=== PATIENT | female | born 1970 | race Caucasian/White ===

== ENCOUNTER 2017-05-02 21:30 | Emergency (ER) | payer MEDICARE, MEDICAID ==
[~2017-05-02] VITALS: Ht 167.6 cm; Wt 59.9 kg
[~2017-05-02 21:30] MED LIST: ALBU6.7H INH; BENZ0.5T PO; BENZ1TAB61 PO; BISA10SU65 PR; DIVA-68 PO; DIVA250T14 PO; HYDR-3245 PO; HYDR25CA PO; HYDR473S51 PO; HYDR50CA PO; HYDR50TA13 PO; IBUP-1223 PO; LAMO25TA13 PO; LEVO100T5 PO; LURA80TA PO; MAGN400O7 PO; MULT1TAB60 PO; NAPR-856 PO; ONDA4TAB10 PO; ONDA4TAB7 PO; OXYB10TA6 PO; PANT40TA5 PO; POLY17PO5 PO; PRAZ1CAP2 PO; PROP10TA PO; RISP2TAB3 PO; RISP3TAB3 PO; RISP4TAB2 PO; SENN-52 PO; SIMV10TA3 PO; SOLI10TA2 PO; TEMA30CA6 PO; TIOT18CA INH; TRAM50TA2 PO; TRAZ50TA18 PO
[2017-05-02] MEDS ORDERED: CLON2TAB PO (22:26)
[2017-05-02] MEDS ORDERED: CLON1TAB PO (22:26)
[2017-05-02] MEDS ORDERED: PROP20TA PO (22:26)
[2017-05-02] MEDS ORDERED: SIMV20TA3 PO (22:26)
[2017-05-02] MEDS ORDERED: DIVA125T2 PO (22:26)
[2017-05-02] MEDS ORDERED: LEVO75TA5 PO (22:26)
[2017-05-02] MEDS ORDERED: ALBUTEROL SULFATE 2.5 MG/3 ML NPPB ONE (22:30)
[2017-05-02] MEDS ORDERED: ALBUTEROL SULFATE 2.5 MG/3 ML ONE (22:35)
[2017-05-02 22:52] VITALS: BP 112/71
== END 2017-05-02 22:55 | disposition home or self-care (01) ==
LOC: ED 22:50
DX: B34.9 Viral infection, unspecified (principal); J44.9 Chronic obstructive pulmonary disease, unspecified; K21.9 Gastro-esophageal reflux disease without esophagitis; E78.5 Hyperlipidemia, unspecified; F43.10 Post-traumatic stress disorder, unspecified; Z86.711 Personal history of pulmonary embolism; Z90.710 Acquired absence of both cervix and uterus; Z88.0 Allergy status to penicillin; Z88.8 Allergy status to other drugs, medicaments and biological substances
CPT/HCPCS: 71046; 93005; 94640; 99284; J7613

== ENCOUNTER 2017-06-27 18:53 | Emergency (ER) | payer MEDICARE, MEDICAID ==
[~2017-06-27] VITALS: Ht 167.6 cm; Wt 66.0 kg
[~2017-06-27 18:53] MED LIST changes: -BENZ0.5T PO; +BENZ0.5T35 PO; +CLON1TAB PO; +CLON2TAB PO; +DIVA125T2 PO; +LEVO75TA5 PO; +PROP20TA PO; +SIMV20TA3 PO
[2017-06-27 19:24] LABS: BASOPHILS # (AUTO) 0.02 x10^3/uL (0-0.1); BASOPHILS % (AUTO) 0 % (0-1); EOSINOPHILS # (AUTO) 0.06 x10^3/uL (0-0.4); EOSINOPHILS % (AUTO) 1 % (1-7); LYMPHOCYTES % (AUTO) 31 % (22-44); MD NO; MEAN CORPUSCULAR HEMOGLOBIN 33.5 pg (27.0-34.8); MEAN CORPUSCULAR HGB CONC 34.1 g/dL (32.4-35.8); MEAN CORPUSCULAR VOLUME 98.1 fL (80-100); MEAN PLATELET VOLUME 7.4 fL (7.4-10.4); MONOCYTES # (AUTO) 0.59 x10^3/uL (0.2-0.8); MONOCYTES % (AUTO) 7 % (2-9); NEUTROPHILS # (AUTO) 4.87 x10^3/uL (1.8-6.8); NEUTROPHILS % (AUTO) 61 % (42-75); PLATELET COUNT 257 x10^3/uL (130-400); RED BLOOD COUNT 3.85 x10^6/uL (3.82-5.3); RED CELL DISTRIBUTION WIDTH 14.6 % (9.6-15.2)
[2017-06-27 19:31] LABS: ALBUMIN 3.8 g/dL (3.4-5.0); ANION GAP 9 mmol/L (5-15); CALCIUM 8.2 mg/dL (8.5-10.1); CHLORIDE 100 mmol/L (98-107)
[2017-06-27 19:32] LABS: CREATININE 0.77 mg/dL (0.55-1.02)
[2017-06-27] MEDS ORDERED: DIPHENHYDRAMINE 25 MG CAPSULE PO ONE (20:00)
[2017-06-27 20:13] LABS: TROPONIN I < 0.015 ng/mL (0.000-0.045)
[2017-06-27] MEDS ORDERED: DIPHENHYDRAMINE 25 MG CAPSULE ONE (21:15)
[2017-06-27 21:18] VITALS: BP 112/80
== END 2017-06-27 22:02 | disposition home or self-care (01) ==
LOC: ED 21:55
DX: R51 Headache (principal); R06.00 Dyspnea, unspecified; R07.89 Other chest pain; E87.1 Hypo-osmolality and hyponatremia; E78.5 Hyperlipidemia, unspecified; K21.9 Gastro-esophageal reflux disease without esophagitis; J45.909 Unspecified asthma, uncomplicated; F17.200 Nicotine dependence, unspecified, uncomplicated; F43.10 Post-traumatic stress disorder, unspecified; F42.9 Obsessive-compulsive disorder, unspecified; K22.70 Barrett's esophagus without dysplasia; Z90.710 Acquired absence of both cervix and uterus
CPT/HCPCS: 36415; 70450; 71045; 80048; 82040; 84484; 85025; 93005; 99285; Q0163

== ENCOUNTER 2018-02-26 21:48 | Inpatient (IN) | payer MEDICARE, MEDICAID ==
[~2018-02-26] VITALS: Ht 167.6 cm; Wt 91.2 kg
[~2018-02-26 21:48] MED LIST changes: +DIVA-61 PO; -DIVA-68 PO; -PROP10TA PO; +PROP10TA16 PO; -TRAZ50TA18 PO; +TRAZ50TA66 PO
[2018-02-26] MEDS ORDERED: LORazepam 2 MG/ML, 1ML ONE (21:50)
[2018-02-26 22:21] LABS: MEAN CORPUSCULAR HEMOGLOBIN 32.5 pg (27.0-34.8); MEAN CORPUSCULAR HGB CONC 34.4 g/dL (32.4-35.8); MEAN CORPUSCULAR VOLUME 94.4 fL (80-100); PLATELET COUNT 225 x10^3/uL (130-400); RED BLOOD COUNT 4.29 x10^6/uL (3.82-5.3); RED CELL DISTRIBUTION WIDTH 16.9 % (9.6-15.2)
[2018-02-26 22:24] LABS: MD YES
[2018-02-26 22:29] LABS: INTERNATIONAL NORMALIZED RATIO 0.88 (0.93-1.1); PROTHROMBIN TIME 9.4 Seconds (9.6-11.5)
[2018-02-26] MEDS ORDERED: LEVETIRACETAM 1,000 MG in SODIUM CHLORIDE 0.9% 100 ML IV ONE (22:30)
[2018-02-26] MEDS: PLEASE ENTER ALLERGIES MC SCH ×2 (22:30→23:33)
[2018-02-26] MEDS ORDERED: PROPOFOL 100 ML IV PRN (22:30)
[2018-02-26 22:32] LABS: BASOS#(MANUAL) 0.07 x10^3/uL (0-0.1); BASOS% (MANUAL) 1 % (0-1); EOS#(MANUAL) 0.26 x10^3/uL (0.0-0.4); EOS% (MANUAL) 4 % (1-7); LYMPH#(MANUAL) 2.54 x10^3/uL (1-3.4); LYMPHS% (MANUAL) 39 % (22-44); MONOS% (MANUAL) 3 % (2-9); REACTIVE LYMPHS % (MANUAL) 3 % (0-0); SEG#(MANUAL) 3.25 x10^3/uL (1.8-6.8); SEGS% (MANUAL) 50 % (42-75)
[2018-02-26 22:33] LABS: <PLATELET ESTIMATE> ADEQUATE; <PLT MORPHOLOGY> NORMAL PLT MORPH; ANISOCYTOSIS 1+
[2018-02-26 22:41] LABS: MICROSCOPIC INDICATED
[2018-02-26] MEDS ORDERED: OMNIPAQUE 350 MG/ML, 100ML BOTTLE ONE (22:47)
[2018-02-26] MEDS ORDERED: DIVALPROEX 250 MG TABLET.DR PO ONE (23:00)
--- NOTE | 2018-02-26 23:07 | NUR ---
BIB [facility] FROM HOME D/T NEURO SYMPTOMS THEN PT HAVING SZ [facility] GIVEN 2 VERSED DURING THE TIME 2145 PT WAS IN T3 WITH HAVING SZ ERP AT BED SIDE DECIDED INTUBATION 2199 INTUBATED WITH #7 24CM AT LIP 100 ROUCRONIUM WITH 2 VERSED GIVEN DURING INTUBATION 2219 CT HEAD BACK TO T3 PT IS NOT RESPONDING AT THIS TIME VSS STABLE WITH VENT AT BED SIDE
[2018-02-26 23:20] LABS: FREE T4 (FREE THYROXINE) 0.95 ng/dL (0.76-1.46); THYROID STIMULATING HORMONE 4.41 mIU/L (0.358-3.740)
[2018-02-26] MEDS ORDERED: VALPROATE SODIUM 750 MG in SODIUM CHLORIDE 0.9% 100 ML IV ONE (23:30)
[2018-02-26] MEDS ORDERED: VALPROATE SODIUM 250 MG in DEXTROSE 5% 100 ML IV SCH (23:30)
[2018-02-26] MEDS ORDERED: ESZO3TAB28 PO (23:50)
[2018-02-26] MEDS ORDERED: CELE200C PO (23:50)
[2018-02-26] MEDS ORDERED: CLON0.5T20 PO (23:50)
[2018-02-26] MEDS ORDERED: FLUT1BLS INH (23:50)
[2018-02-26] MEDS ORDERED: PROC25SU2 PR (23:50)
[2018-02-26] MEDS ORDERED: LORA2TAB PO (23:50)
[2018-02-26] MEDS ORDERED: FLUT15OI2 INH (23:50)
[2018-02-26] MEDS ORDERED: ONDA4TAB7 PO (23:50)
[2018-02-26] MEDS ORDERED: RISP1TAB3 PO (23:50)
[2018-02-26] MEDS ORDERED: LINA145C PO (23:50)
[2018-02-26] MEDS ORDERED: DICY10CA3 PO (23:50)
[2018-02-26] MEDS ORDERED: BENZ-17 PO (23:50)
[2018-02-26] MEDS ORDERED: PANT40TA5 PO (23:50)
[2018-02-26] MEDS ORDERED: DOCU100C33 PO (23:50)
[2018-02-26] MEDS ORDERED: PRAZ2CAP2 PO (23:50)
[2018-02-26] MEDS ORDERED: GABA300C10 PO (23:50)
--- NOTE | 2018-02-26 23:51 | NUR ---
OFF PROPOFOL PER ERP PT IS NOT RESPONDING AT ANY STIMULUS BLOOD GAS WAS NOTIFIED TO RT AND VENT SETTING WAS CHANGED
--- NOTE | 2018-02-26 23:52 | NUR ---
( MOUSTAPHA ) PHONE NUMBER [phone]
[2018-02-27] MEDS ORDERED: MIDAZOLAM 1 MG/ML, 5ML ONE
[2018-02-27] MEDS ORDERED: ROCURONIUM 10 MG/ML,10ML ONE
[2018-02-27] MEDS ORDERED: PROPOFOL 10 MG/ML, 100ML IV ONE
[2018-02-27] MEDS ORDERED: MIDAZOLAM 1 MG/ML, 2ML IVPush ONE (00:30)
[2018-02-27] MEDS ORDERED: ROCURONIUM 10 MG/ML,10ML IVPush ONE ×2 (00:30)
--- NOTE | 2018-02-27 00:34 | NUR ---
PT IS BACK ON SEDATION FOR ERP VSS AT BED SIDE
[2018-02-27] MEDS ORDERED: PROPOFOL 100 ML IV PRN (00:35)
[2018-02-27] MEDS: CEFTRIAXONE PMX 2GM/50ML 50 ML IV SCH (01:00)
[2018-02-27] MEDS ORDERED: SENNOSIDES 8.8 MG/5 ML ORAL SOL NG PRN (01:00)
[2018-02-27] MEDS ORDERED: SENNA/DOCUSATE TABLET NG PRN (01:00)
[2018-02-27] MEDS ORDERED: PHARMACY MAY ADJ FOR RENAL FX MC SCH (01:00)
[2018-02-27] MEDS ORDERED: SODIUM CHLORIDE 0.9% 1,000 ML IV SCH (01:00)
[2018-02-27] MEDS ORDERED: LACTULOSE 20 GM/30 ML UDC NG PRN (01:00)
[2018-02-27] MEDS ORDERED: LORazepam 2 MG/ML, 1ML IV PRN (01:00)
[2018-02-27] MEDS ORDERED: LIDOCAINE-MPF 1%, 2ML ENDO PRN (01:00)
[2018-02-27] MEDS ORDERED: BISACODYL 10 MG SUPP PR PRN (01:00)
[2018-02-27] MEDS ORDERED: METRONIDAZOLE PMX 500MG/100ML 100 ML ONE ×3 (01:15→13:48)
[2018-02-27] MEDS ORDERED: CEFTRIAXONE PMX 1GM/50ML 50 ML ONE (01:15)
[2018-02-27] MEDS: METRONIDAZOLE PMX 500MG/100ML 100 ML IV SCH ×4 (01:18→20:11)
--- NOTE | 2018-02-27 01:20 | NUR ---
NO BLOOD CULTURES WERE NEEDED PER [facility] ANITA GIVEN IV ABX PER MD ORDER
--- NOTE | 2018-02-27 01:29 | NUR ---
MRi: waiting for screening form before calling tech in, fax [phone] pls
[2018-02-27 01:48] LABS: TROPONIN I < 0.015 ng/mL (0.000-0.045)
[2018-02-27] MEDS ORDERED: FAMOTIDINE 20 MG/2 ML ONE ×2 (02:03→13:49)
[2018-02-27] MEDS ORDERED: HEPARIN 5,000 UNITS/ML, 1ML ONE ×2 (02:03→09:50)
[2018-02-27] MEDS: ALBUTEROL/IPRATROPIUM 2.5MG/0.5MG, 3 ML INLINE SCH ×2 (02:41→06:00)
--- NOTE | 2018-02-27 02:44 | NUR ---
pt is on hospital bed with waffle mattress on vss pt is easily awake and back to sleep no seizure is seen now
[2018-02-27] MEDS: FAMOTIDINE 20 MG/2 ML IV SCH ×2 (02:48→14:00)
[2018-02-27] MEDS: HEPARIN 5,000 UNITS/ML, 1ML SQ SCH ×3 (02:49→18:04)
[2018-02-27] MEDS ORDERED: ALBUTEROL/IPRATROPIUM 2.5MG/0.5MG, 3 ML ONE (02:52)
[2018-02-27] MEDS ORDERED: PROPOFOL 100 ML IV ONE (04:00)
--- NOTE | 2018-02-27 04:47 | NUR ---
no SZ noted pt is calm with propofol
[2018-02-27 06:12] LABS: AMPHETAMINE SCREEN, URINE Negative (Negative); BARBITURATE SCREEN, URINE Negative (Negative); BENZODIAZEPINE SCREEN, URINE Positive (Negative); CANNABINOID SCREEN, URINE Negative (Negative); COCAINE SCREEN, URINE Negative (Negative); METHADONE SCREEN, URINE Negative (Negative); OPIATE SCREEN, URINE Negative (Negative)
[2018-02-27 06:39] LABS: BASOPHILS # (AUTO) 0.02 x10^3/uL (0-0.1); BASOPHILS % (AUTO) 0 % (0-1); EOSINOPHILS # (AUTO) 0.11 x10^3/uL (0-0.4); EOSINOPHILS % (AUTO) 2 % (1-7); LYMPHOCYTES # (AUTO) 1.98 x10^3/uL (1-3.4); LYMPHOCYTES % (AUTO) 28 % (22-44); MD NO; MEAN CORPUSCULAR HGB CONC 34.6 g/dL (32.4-35.8); MEAN CORPUSCULAR VOLUME 95.3 fL (80-100); MONOCYTES # (AUTO) 0.44 x10^3/uL (0.2-0.8); MONOCYTES % (AUTO) 6 % (2-9); NEUTROPHILS # (AUTO) 4.52 x10^3/uL (1.8-6.8); NEUTROPHILS % (AUTO) 64 % (42-75); PLATELET COUNT 212 x10^3/uL (130-400); RED BLOOD COUNT 3.99 x10^6/uL (3.82-5.3); RED CELL DISTRIBUTION WIDTH 17.5 % (9.6-15.2)
[2018-02-27 06:53] LABS: TROPONIN I < 0.015 ng/mL (0.000-0.045)
[2018-02-27 07:04] LABS: ANION GAP 6 mmol/L (5-15); CALCIUM 8.3 mg/dL (8.5-10.1); CHLORIDE 112 mmol/L (98-107); CREATININE 0.71 mg/dL (0.55-1.02)
--- NOTE | 2018-02-27 07:32 | NUR ---
0645 EXTUBATED AFTER SPOKE TO DR TAVERAS WITH RT FRANCIS OFF PROPOFOL PT WAS EXTUBATED APPLIED 4 LITER OF OXYGEN NC PT TALKING DENIED SOB 0650 GIVEN REPORT TO NILTON
--- NOTE | 2018-02-27 08:11 | NUR ---
TO MRI VIA [facility]
[2018-02-27] MEDS ORDERED: FLUTICASONE/VILANTEROL 200-25MCG/INH INH SCH (09:00)
[2018-02-27] MEDS ORDERED: DIVALPROEX 125 MG TABLET.DR PO SCH (09:00)
[2018-02-27] MEDS ORDERED: PANTOPRAZOLE 20MG TABLET ONE (09:49)
[2018-02-27] MEDS ORDERED: DOCUSATE 100 MG CAPSULE ONE (09:50)
[2018-02-27] MEDS ORDERED: GABAPENTIN 300 MG CAPSULE ONE (09:50)
[2018-02-27] MEDS ORDERED: DICYCLOMINE 10 MG CAPSULE ONE (09:50)
--- NOTE | 2018-02-27 10:10 | NUR ---
IS MOUSTAPHA [phone]
--- NOTE | 2018-02-27 10:11 | NUR ---
JULIUS MARTINEZ RN
[2018-02-27] MEDS: GABAPENTIN 300 MG CAPSULE PO SCH ×3 (10:15→20:12)
[2018-02-27] MEDS: DICYCLOMINE 10 MG CAPSULE PO SCH ×4 (10:16→20:14)
[2018-02-27] MEDS: PANTOPROZOLE 40MG TABLET PO SCH (10:16)
[2018-02-27] MEDS: DOCUSATE 100 MG CAPSULE PO SCH ×2 (10:17→20:14)
[2018-02-27] MEDS: LEVOTHYROXINE 88 MCG TABLET PO SCH (10:17)
[2018-02-27] MEDS: DIVALPROEX 125 MG TABLET.DR PO SCH ×2 (10:19→20:13)
[2018-02-27] MEDS: LAMOTRIGINE 100 MG TABLET PO SCH (10:27)
[2018-02-27] MEDS: FLUTICASONE NASAL SPRAY 16GM NAS SCH (10:28)
[2018-02-27] MEDS: LINZESS 145 MCG PO SCH (10:28)
[2018-02-27] MEDS ORDERED: BUDESONIDE 0.5 MG/2 ML INHA NPPB SCH (10:30)
[2018-02-27] MEDS ORDERED: ALBUTEROL SULFATE 2.5 MG/3 ML NPPB SCH (10:30)
--- NOTE | 2018-02-27 11:51 | NUR ---
VERBAL ORDER RECIEVED FROM DR. DOZIER AND READ BACK FOR A REGULAR DIET. ORDERING PT A REGULAR DIET MEAL TRAY.
--- NOTE | 2018-02-27 13:05 | NUR ---
LUNCH RN: PT RESTING IN ROOM, EEG COMPLETED AT THIS TIME.
--- NOTE | 2018-02-27 13:36 | NUR ---
Pt sleeping on hospital bed at this time. NADN. PIV fluids infusing per EMAR. Provided pt meal tray for lunch. Pt sleeping at this time.
[2018-02-27] MEDS ORDERED: ALBUTEROL SULFATE 2.5 MG/3 ML ONE (14:41)
[2018-02-27] MEDS ORDERED: BUDESONIDE 0.5 MG/2 ML INHA ONE (14:41)
[2018-02-27] MEDS: ALBUTEROL SULFATE 2.5 MG/3 ML NPPB SCH ×2 (14:43→20:35)
[2018-02-27 15:56] VITALS: BP 101/66
[2018-02-27 18:58] VITALS: BP 99/67
[2018-02-27] MEDS: BUDESONIDE 0.5 MG/2 ML INHA NPPB SCH (20:33)
[2018-02-27] MEDS ORDERED: RISPERIDONE 1 MG TABLET PO SCH (21:00)
[2018-02-27] MEDS ORDERED: LUNESTA 3 MG PO SCH (21:00)
[2018-02-27] MEDS ORDERED: PRAZOSIN 2 MG CAPSULE PO SCH (21:00)
[2018-02-27] MEDS ORDERED: SIMVASTATIN 20 MG TABLET PO SCH (21:00)
[2018-02-28 00:55] VITALS: BP 98/56
[2018-02-28] MEDS: CEFTRIAXONE PMX 2GM/50ML 50 ML IV SCH (01:25)
[2018-02-28] MEDS: HEPARIN 5,000 UNITS/ML, 1ML SQ SCH ×2 (01:26→08:18)
[2018-02-28] MEDS: FAMOTIDINE 20 MG/2 ML IV SCH (01:26)
[2018-02-28] MEDS: METRONIDAZOLE PMX 500MG/100ML 100 ML IV SCH ×2 (02:30→08:16)
[2018-02-28] MEDS: ALBUTEROL SULFATE 2.5 MG/3 ML NPPB SCH ×2 (03:00→08:20)
[2018-02-28 05:43] LABS: BASOPHILS # (AUTO) 0.04 x10^3/uL (0-0.1); BASOPHILS % (AUTO) 1 % (0-1); EOSINOPHILS # (AUTO) 0.08 x10^3/uL (0-0.4); EOSINOPHILS % (AUTO) 2 % (1-7); LYMPHOCYTES # (AUTO) 2.09 x10^3/uL (1-3.4); LYMPHOCYTES % (AUTO) 39 % (22-44); MD NO; MEAN CORPUSCULAR HEMOGLOBIN 32.7 pg (27.0-34.8); MEAN CORPUSCULAR HGB CONC 34.1 g/dL (32.4-35.8); MEAN CORPUSCULAR VOLUME 95.7 fL (80-100); MONOCYTES # (AUTO) 0.49 x10^3/uL (0.2-0.8); MONOCYTES % (AUTO) 9 % (2-9); NEUTROPHILS # (AUTO) 2.71 x10^3/uL (1.8-6.8); NEUTROPHILS % (AUTO) 50 % (42-75); PLATELET COUNT 193 x10^3/uL (130-400); RED BLOOD COUNT 3.65 x10^6/uL (3.82-5.3); RED CELL DISTRIBUTION WIDTH 17.2 % (9.6-15.2)
[2018-02-28 05:51] LABS: CHLORIDE 114 mmol/L (98-107)
[2018-02-28 05:56] LABS: ANION GAP 4 mmol/L (5-15); CALCIUM 8.8 mg/dL (8.5-10.1)
[2018-02-28] MEDS: LEVOTHYROXINE 88 MCG TABLET PO SCH (06:08)
[2018-02-28] MEDS: DICYCLOMINE 10 MG CAPSULE PO SCH ×2 (06:08→11:14)
[2018-02-28 08:08] VITALS: BP 114/77
[2018-02-28] MEDS: LINZESS 145 MCG PO SCH (08:16)
[2018-02-28] MEDS: LAMOTRIGINE 100 MG TABLET PO SCH (08:17)
[2018-02-28] MEDS: DIVALPROEX 125 MG TABLET.DR PO SCH (08:17)
[2018-02-28] MEDS: FLUTICASONE NASAL SPRAY 16GM NAS SCH (08:17)
[2018-02-28] MEDS: DOCUSATE 100 MG CAPSULE PO SCH (08:17)
[2018-02-28] MEDS: PANTOPROZOLE 40MG TABLET PO SCH (08:18)
[2018-02-28] MEDS: GABAPENTIN 300 MG CAPSULE PO SCH (08:18)
[2018-02-28] MEDS: BUDESONIDE 0.5 MG/2 ML INHA NPPB SCH (09:00)
[2018-02-28] MEDS ORDERED: DIVA125T2 PO (11:55)
[2018-02-28 12:57] VITALS: BP 125/77
== END 2018-02-28 13:20 | disposition home or self-care (01) | DRG 208 ==
LOC: MERGE 21:48 → EDSEX 21:48 → EDBD 21:48 → ED 23:48 → EDIP 23:49 → 4WST 02-27 15:37 → DCLOUNGE 02-28 13:07
PROVIDERS: ADMIT Internal Medicine; ATTEND Internal Medicine
PROC: 5A1935Z Respiratory Ventilation, Less than 24 Consecutive Hours (ICD-10-PCS; principal; 2018-02-26)
PROC: 0BH17EZ Insertion of Endotracheal Airway into Trachea, Via Natural or Artificial Opening (ICD-10-PCS; 2018-02-26)
PROC: 0T9B70Z Drainage of Bladder with Drainage Device, Via Natural or Artificial Opening (ICD-10-PCS; 2018-02-26)
DX: J96.00 Acute respiratory failure, unspecified whether with hypoxia or hypercapnia (principal); J98.11 Atelectasis; R47.01 Aphasia; G40.901 Epilepsy, unspecified, not intractable, with status epilepticus; E06.3 Autoimmune thyroiditis; E78.5 Hyperlipidemia, unspecified; F31.9 Bipolar disorder, unspecified; F41.1 Generalized anxiety disorder; F42.9 Obsessive-compulsive disorder, unspecified; E66.9 Obesity, unspecified; F43.10 Post-traumatic stress disorder, unspecified; G43.909 Migraine, unspecified, not intractable, without status migrainosus; G89.4 Chronic pain syndrome; I11.9 Hypertensive heart disease without heart failure; J44.9 Chronic obstructive pulmonary disease, unspecified; K21.9 Gastro-esophageal reflux disease without esophagitis; K22.70 Barrett's esophagus without dysplasia; Z80.0 Family history of malignant neoplasm of digestive organs; Z86.711 Personal history of pulmonary embolism; Z90.710 Acquired absence of both cervix and uterus; Z79.899 Other long term (current) drug therapy; Z88.0 Allergy status to penicillin; Z88.8 Allergy status to other drugs, medicaments and biological substances; Z91.040 Latex allergy status; Z98.49 Cataract extraction status, unspecified eye; Z68.32 Body mass index [BMI] 32.0-32.9, adult
CPT/HCPCS: 31500; 36415; 36600; 70450; 70496; 70498; 70545; 70553; 71045; 80047; 80048; 80164; 80307; 81001; 82140; 82803; 82805; 82962; 83735; 84439; 84443; 84478; 84484; 85025; 85610; 85730; 87070; 87205; 93005; 94002; 94003; 94640; 95819; 96365; 96375; 99291; G0378; J0696; J1644; J2250; J2704; J7613; J7620; J7626; Q9967; J3490; J7030

== ENCOUNTER → 2018-05-14 | Outpatient (CLI) | payer MEDICARE, MEDICAID ==
[~2018-05-14] MED LIST changes: +BENZ-17 PO; +CELE200C PO; +CLON0.5T20 PO; +DICY10CA3 PO; +DOCU100C33 PO; +ESZO3TAB28 PO; +FLUT15OI2 INH; +FLUT1BLS INH; +GABA300C10 PO; +LINA145C PO; +LORA2TAB PO; +PRAZ2CAP2 PO; +PROC25SU2 PR; +RISP1TAB3 PO
[2018-05-14 15:29] LABS: HCT (SEDRATE) 41.9 % (34.6-47.8)
[2018-05-14 15:30] LABS: BASOPHILS # (AUTO) 0.05 x10^3/uL (0-0.1); BASOPHILS % (AUTO) 1 % (0-1); EOSINOPHILS # (AUTO) 0.28 x10^3/uL (0-0.4); EOSINOPHILS % (AUTO) 4 % (1-7); LYMPHOCYTES % (AUTO) 41 % (22-44); MD NO; MEAN CORPUSCULAR HEMOGLOBIN 33.7 pg (27.0-34.8); MEAN CORPUSCULAR HGB CONC 34.2 g/dL (32.4-35.8); MEAN CORPUSCULAR VOLUME 98.6 fL (80-100); MEAN PLATELET VOLUME 7.9 fL (7.4-10.4); MONOCYTES # (AUTO) 0.44 x10^3/uL (0.2-0.8); MONOCYTES % (AUTO) 6 % (2-9); NEUTROPHILS # (AUTO) 3.23 x10^3/uL (1.8-6.8); NEUTROPHILS % (AUTO) 48 % (42-75); PLATELET COUNT 259 x10^3/uL (130-400); RED BLOOD COUNT 4.28 x10^6/uL (3.82-5.3); RED CELL DISTRIBUTION WIDTH 14.4 % (9.6-15.2)
[2018-05-14 15:38] LABS: C-REACTIVE PROTEIN, QUANT 0.03 mg/dL (0.02-0.49)
== END | disposition home or self-care (01) ==
LOC: CFH 12:12
PROVIDERS: ATTEND Orthopaedic Surgery
DX: M05.841 Other rheumatoid arthritis with rheumatoid factor of right hand (principal)
CPT/HCPCS: 36415; 81374; 83516; 84550; 85025; 85651; 86038; 86140; 86160; 86200; 86225; 86235; 86255; 86256; 86376; 86430; 86431

== ENCOUNTER 2018-08-31 10:22 | Outpatient (CLI) | payer MEDICARE, MEDICAID | END 2018-08-31 23:59 | disposition home or self-care (01) | LOC: CFH 10:22 | PROVIDERS: ATTEND Nurse Practitioner | DX: Z12.2 Encounter for screening for malignant neoplasm of respiratory organs (principal); K44.9 Diaphragmatic hernia without obstruction or gangrene; F17.210 Nicotine dependence, cigarettes, uncomplicated | CPT/HCPCS: G0297 ==

== ENCOUNTER 2019-03-02 14:39 | Emergency (ER) | payer MEDICAID, MEDICARE ==
[~2019-03-02] VITALS: Ht 167.6 cm; Wt 69.5 kg
[~2019-03-02 14:39] MED LIST changes: -ALBU6.7H INH; +ALBU6.7H8 INH
[2019-03-02] MEDS ORDERED: LINA290C PO (15:02)
[2019-03-02] MEDS ORDERED: SUPER B COMPLEX PO (15:09)
[2019-03-02] MEDS ORDERED: DIAZ10TA4 PO (15:09)
[2019-03-02] MEDS ORDERED: FOLI-17 PO (15:09)
[2019-03-02] MEDS ORDERED: VITAMIN B6 PO (15:09)
[2019-03-02] MEDS ORDERED: CYAN50003 PO (15:09)
[2019-03-02] MEDS ORDERED: ERGO500017 PO (15:09)
[2019-03-02] MEDS ORDERED: TRAZ-137 PO (15:09)
[2019-03-02] MEDS ORDERED: ONDANSETRON 2MG/ML, 2ML ONE (15:27)
[2019-03-02] MEDS ORDERED: SODIUM CHLORIDE 0.9% 1,000ML IVBOLUS ONE (15:30)
[2019-03-02] MEDS ORDERED: ONDANSETRON 2MG/ML, 2ML IVPush ONE (15:30)
[2019-03-02 15:43] LABS: BASOPHILS # (AUTO) 0.13 x10^3/uL (0-0.1); BASOPHILS % (AUTO) 2 % (0-1); EOSINOPHILS # (AUTO) 0.18 x10^3/uL (0-0.4); EOSINOPHILS % (AUTO) 3 % (1-7); LYMPHOCYTES % (AUTO) 39 % (22-44); MD NO; MEAN CORPUSCULAR HEMOGLOBIN 31.1 pg (27.0-34.8); MEAN CORPUSCULAR HGB CONC 33.2 g/dL (32.4-35.8); MEAN CORPUSCULAR VOLUME 93.6 fL (80-100); MEAN PLATELET VOLUME 7.8 fL (7.4-10.4); MONOCYTES # (AUTO) 0.46 x10^3/uL (0.2-0.8); MONOCYTES % (AUTO) 8 % (2-9); NEUTROPHILS % (AUTO) 48 % (42-75); PLATELET COUNT 241 x10^3/uL (130-400); RED BLOOD COUNT 4.35 x10^6/uL (3.82-5.3); RED CELL DISTRIBUTION WIDTH 14.6 % (9.6-15.2)
[2019-03-02 15:50] LABS: ALBUMIN 3.8 g/dL (3.4-5.0); ANION GAP 9 mmol/L (5-15); CHLORIDE 113 mmol/L (98-107)
[2019-03-02 15:54] LABS: ALANINE AMINOTRANSFERASE 13 U/L (12-78); ALKALINE PHOSPHATASE 49 U/L (45-117); BILIRUBIN,TOTAL 0.3 mg/dL (0.2-1.0); CREATININE 0.92 mg/dL (0.55-1.02); TOTAL PROTEIN 6.6 g/dL (6.4-8.2)
[2019-03-02] MEDS ORDERED: OMNIPAQUE 350 MG/ML, 100ML BOTTLE ONE (17:03)
[2019-03-02 17:35] VITALS: BP 106/71
== END 2019-03-02 18:48 | disposition home or self-care (01) ==
LOC: ED 15:30
DX: R10.84 Generalized abdominal pain (principal); J44.0 Chronic obstructive pulmonary disease with (acute) lower respiratory infection; K21.9 Gastro-esophageal reflux disease without esophagitis; E78.5 Hyperlipidemia, unspecified; Z90.710 Acquired absence of both cervix and uterus
CPT/HCPCS: 36415; 74021; 74177; 80053; 83690; 85025; 96374; 99284; J2405; J7030; Q9967

== ENCOUNTER 2019-04-01 11:19 | Emergency (ER) | payer MEDICARE ==
[~2019-04-01] VITALS: Ht 167.6 cm; Wt 75.0 kg
[~2019-04-01 11:19] MED LIST changes: +CYAN50003 PO; +DIAZ10TA4 PO; +ERGO500017 PO; +FOLI-17 PO; -HYDR50TA13 PO; +HYDR50TA99 PO; +LINA290C PO; +SIMV10TA18 PO; -SIMV10TA3 PO; +SIMV20TA19 PO; -SIMV20TA3 PO; +SUPER B COMPLEX PO; +TRAZ-175 PO; +VITAMIN B6 PO
[2019-04-01 11:57] LABS: BASOPHILS # (AUTO) 0.02 x10^3/uL (0-0.1); BASOPHILS % (AUTO) 0 % (0-1); EOSINOPHILS # (AUTO) 0.09 x10^3/uL (0-0.4); EOSINOPHILS % (AUTO) 2 % (1-7); LYMPHOCYTES # (AUTO) 1.54 x10^3/uL (1-3.4); LYMPHOCYTES % (AUTO) 30 % (22-44); MD NO; MEAN CORPUSCULAR HEMOGLOBIN 31.6 pg (27.0-34.8); MEAN CORPUSCULAR HGB CONC 33.7 g/dL (32.4-35.8); MEAN CORPUSCULAR VOLUME 93.9 fL (80-100); MEAN PLATELET VOLUME 8.1 fL (7.4-10.4); MONOCYTES # (AUTO) 0.38 x10^3/uL (0.2-0.8); MONOCYTES % (AUTO) 7 % (2-9); NEUTROPHILS # (AUTO) 3.11 x10^3/uL (1.8-6.8); NEUTROPHILS % (AUTO) 61 % (42-75); PLATELET COUNT 186 x10^3/uL (130-400); RED CELL DISTRIBUTION WIDTH 14.9 % (9.6-15.2)
[2019-04-01 12:11] LABS: ALBUMIN 3.7 g/dL (3.4-5.0); ANION GAP 6 mmol/L (5-15); CALCIUM 8.5 mg/dL (8.5-10.1); CHLORIDE 113 mmol/L (98-107)
--- NOTE | 2019-04-01 12:30 | NUR ---
LEAD INJECTION MOLD TECHNICIAN: PT TO ROOM VIA WHEELCHAIR AT THIS TIME. GUSTAVO
[2019-04-01 13:17] VITALS: BP 118/78
--- NOTE | 2019-04-01 13:17 | NUR ---
UA COLLECTED AND SENT TO LAB.
[2019-04-01 13:27] LABS: MICROSCOPIC AUTO
[2019-04-01 13:29] LABS: CULTURE INDICATED? YES
--- NOTE | 2019-04-01 13:47 | NUR ---
ALL RESULTS BACK AT THIS TIME, CHART UP FOR RECHECK
== END 2019-04-01 14:26 | disposition home or self-care (01) ==
LOC: ED 14:00
DX: N30.00 Acute cystitis without hematuria (principal); R10.84 Generalized abdominal pain; M79.672 Pain in left foot; H00.022 Hordeolum internum right lower eyelid; J44.9 Chronic obstructive pulmonary disease, unspecified; K21.9 Gastro-esophageal reflux disease without esophagitis; E78.5 Hyperlipidemia, unspecified; F17.200 Nicotine dependence, unspecified, uncomplicated
CPT/HCPCS: 36415; 74022; 80048; 81001; 82040; 85025; 87077; 87086; 87186; 99285

== ENCOUNTER 2019-06-13 16:02 | Observation (INO) | payer MEDICARE, MEDICAID ==
[~2019-06-13] VITALS: Ht 167.6 cm; Wt 79.8 kg
[2019-06-13 17:13] LABS: BASOPHILS # (AUTO) 0.04 x10^3/uL (0-0.1); BASOPHILS % (AUTO) 1 % (0-1); EOSINOPHILS # (AUTO) 0.15 x10^3/uL (0-0.4); EOSINOPHILS % (AUTO) 3 % (1-7); LYMPHOCYTES # (AUTO) 2.24 x10^3/uL (1-3.4); LYMPHOCYTES % (AUTO) 44 % (22-44); MD NO; MEAN CORPUSCULAR HEMOGLOBIN 32.5 pg (27.0-34.8); MEAN CORPUSCULAR HGB CONC 34.3 g/dL (32.4-35.8); MEAN CORPUSCULAR VOLUME 94.8 fL (80-100); MEAN PLATELET VOLUME 7.8 fL (7.4-10.4); MONOCYTES # (AUTO) 0.36 x10^3/uL (0.2-0.8); MONOCYTES % (AUTO) 7 % (2-9); NEUTROPHILS # (AUTO) 2.34 x10^3/uL (1.8-6.8); NEUTROPHILS % (AUTO) 46 % (42-75); PLATELET COUNT 232 x10^3/uL (130-400); RED BLOOD COUNT 4.33 x10^6/uL (3.82-5.3); RED CELL DISTRIBUTION WIDTH 14.8 % (9.6-15.2)
[2019-06-13 17:27] LABS: ALANINE AMINOTRANSFERASE 15 U/L (12-78); ALBUMIN 3.3 g/dL (3.4-5.0); ANION GAP 7 mmol/L (5-15); CALCIUM 8.5 mg/dL (8.5-10.1); CHLORIDE 106 mmol/L (98-107); CREATININE 0.84 mg/dL (0.55-1.02)
[2019-06-13 17:29] LABS: ALKALINE PHOSPHATASE 44 U/L (45-117); BILIRUBIN,TOTAL 0.3 mg/dL (0.2-1.0); TOTAL PROTEIN 6.3 g/dL (6.4-8.2)
[2019-06-13] MEDS ORDERED: MORPHINE SULFATE 4 MG/ML, 1ML IVPush PRN (18:00)
--- NOTE | 2019-06-13 18:09 | NUR ---
ASSUMED CARE OF PATIENT. PATIENT REPORTS SHE HAS NOT HAD A BOWEL MOVEMENT SINCE MONDAY. ABD IS DISTENDED. VS STABLE. CALL LIGHT IN PLACE. WILL CONTINUE TO MONITOR.
[2019-06-13] MEDS ORDERED: MORPHINE SULFATE 4 MG/ML, 1ML ONE (18:15)
--- NOTE | 2019-06-13 19:03 | NUR ---
PT RESTING IN ROOM. NO ACUTE DISTRESS NOTED. VS STABLE. WILL CONTINUE TO MONITOR.
[2019-06-13 19:34] LABS: MICROSCOPIC NOT IND
[2019-06-13 19:39] LABS: CULTURE INDICATED? NO
--- NOTE | 2019-06-13 19:46 | NUR ---
PT RESTING IN ROOM. NO ACUTE DISTRESS NOTED. CALL LIGHT IN PLACE. WILL CONTINUE TO MONITOR.
--- NOTE | 2019-06-13 20:36 | NUR ---
PT WATCHING TV IN ROOM. NO ACUTE DISTRESS NOTED. CALL LIGHT IN PLACE. WILL CONTINUE TO MONITOR.
[2019-06-13] MEDS ORDERED: OMNIPAQUE 350 MG/ML, 100ML BOTTLE ONE (20:50)
--- NOTE | 2019-06-13 21:42 | NUR ---
ENEMA STARTED PER DR DUBON
--- NOTE | 2019-06-13 22:20 | NUR ---
ENEMA DONE WITH NO RELIEF. DR FLORES AWARE. PT TO BE AN ADMIT
[2019-06-13] MEDS ORDERED: TRAZ300T2 PO (22:28)
[2019-06-13] MEDS ORDERED: HYOS0.1282 PO (22:31)
[2019-06-13] MEDS ORDERED: CLON1TAB23 PO (22:32)
[2019-06-13] MEDS ORDERED: DIVA500T2 PO (22:33)
[2019-06-13] MEDS ORDERED: PRAZ2CAP2 PO (22:34)
--- NOTE | 2019-06-13 22:51 | NUR ---
HOSPITALIST IN ROOM
[2019-06-13] MEDS ORDERED: ACETAMINOPHEN 325 MG TABLET PO PRN (23:30)
[2019-06-13] MEDS ORDERED: DOCUSATE 100 MG CAPSULE PO PRN (23:30)
[2019-06-13] MEDS ORDERED: ONDANSETRON 2MG/ML, 2ML IVPush PRN (23:30)
[2019-06-13] MEDS ORDERED: POLYETHYLENE GLYCOL 17 GM PACKET PO PRN (23:30)
[2019-06-13] MEDS ORDERED: BISACODYL 10 MG SUPP PR PRN (23:30)
--- NOTE | 2019-06-14 00:25 | NUR ---
report called into LIZETH Yip
[2019-06-14 00:53] VITALS: BP 117/81
[2019-06-14] MEDS: BUDESONIDE 0.5 MG/2 ML INHA NPPB SCH ×2 (01:00→07:30)
[2019-06-14 01:08] VITALS: BP 117/81
[2019-06-14] MEDS: KETOROLAC 30 MG/1 ML IV PRN ×2 (01:41→10:36)
[2019-06-14 05:30] LABS: ANION GAP 5 mmol/L (5-15); CALCIUM 7.9 mg/dL (8.5-10.1); CHLORIDE 103 mmol/L (98-107)
[2019-06-14 05:31] LABS: BASOPHILS # (AUTO) 0.04 x10^3/uL (0-0.1); BASOPHILS % (AUTO) 1 % (0-1); CREATININE 0.83 mg/dL (0.55-1.02); EOSINOPHILS # (AUTO) 0.26 x10^3/uL (0-0.4); EOSINOPHILS % (AUTO) 5 % (1-7); LYMPHOCYTES # (AUTO) 2.96 x10^3/uL (1-3.4); LYMPHOCYTES % (AUTO) 52 % (22-44); MD NO; MEAN CORPUSCULAR HEMOGLOBIN 32.4 pg (27.0-34.8); MEAN CORPUSCULAR VOLUME 95.3 fL (80-100); MEAN PLATELET VOLUME 8.4 fL (7.4-10.4); MONOCYTES # (AUTO) 0.41 x10^3/uL (0.2-0.8); MONOCYTES % (AUTO) 7 % (2-9); NEUTROPHILS # (AUTO) 2.08 x10^3/uL (1.8-6.8); NEUTROPHILS % (AUTO) 36 % (42-75); PLATELET COUNT 199 x10^3/uL (130-400); RED BLOOD COUNT 3.89 x10^6/uL (3.82-5.3); RED CELL DISTRIBUTION WIDTH 14.8 % (9.6-15.2)
[2019-06-14] MEDS: HYOSCYAMINE 0.125 MG TABLET PO SCH ×2 (05:33→11:00)
[2019-06-14] MEDS ORDERED: LEVOTHYROXINE 88 MCG TABLET PO SCH (06:00)
[2019-06-14] MEDS ORDERED: ALBUTEROL SULFATE 2.5 MG/3 ML NPPB SCH (06:00)
[2019-06-14] MEDS: ALBUTEROL SULFATE 2.5 MG/3 ML NPPB SCH ×2 (07:30→11:45)
[2019-06-14 08:07] VITALS: BP 100/65
[2019-06-14] MEDS ORDERED: CYANOCOBALAMIN 1,000 MCG TABLET PO SCH (09:00)
[2019-06-14] MEDS ORDERED: LACTULOSE 10 GM/15 ML UDC PO SCH (09:00)
[2019-06-14] MEDS ORDERED: TEMPLATE NON-FORMULARY MED. (Linaclotide** (Linzess**) 290 MCG) HOMEMEDPO SCH (09:00)
[2019-06-14] MEDS ORDERED: MULTIVITS,STRESS FORMULA 1 TABLET PO SCH (09:00)
[2019-06-14] MEDS ORDERED: FOLIC ACID 1 MG TABLET PO SCH (09:00)
[2019-06-14] MEDS ORDERED: LAMOTRIGINE 25 MG TABLET PO SCH (09:00)
[2019-06-14] MEDS ORDERED: PANTOPRAZOLE 40MG TABLET PO SCH (09:00)
[2019-06-14] MEDS ORDERED: DIVALPROEX 250 MG TABLET.DR PO SCH (09:00)
[2019-06-14] MEDS ORDERED: DOCUSATE 100 MG CAPSULE PO SCH (09:00)
[2019-06-14] MEDS ORDERED: PYRIDOXINE 50MG TABLET PO SCH (09:00)
[2019-06-14] MEDS ORDERED: RISPERIDONE 1 MG TABLET PO SCH (09:00)
[2019-06-14] MEDS ORDERED: SENNA/DOCUSATE TABLET PO SCH (09:00)
[2019-06-14 12:45] VITALS: BP 98/61
[2019-06-14] MEDS ORDERED: TRAZODONE 150MG TABLET PO SCH (21:00)
[2019-06-14] MEDS ORDERED: PRAZOSIN 2 MG CAPSULE PO SCH (21:00)
[2019-06-14] MEDS ORDERED: SIMVASTATIN 10 MG TABLET PO SCH (21:00)
== END 2019-06-14 17:35 | disposition home or self-care (01) ==
LOC: ED 18:17 → EDIP 22:41 → INTOOBSV 22:41 → 3N 06-14 00:51
PROVIDERS: ATTEND Family Medicine
DX: K59.00 Constipation, unspecified (principal); R10.9 Unspecified abdominal pain; K31.9 Disease of stomach and duodenum, unspecified; K21.9 Gastro-esophageal reflux disease without esophagitis; F25.9 Schizoaffective disorder, unspecified; K22.70 Barrett's esophagus without dysplasia; J44.9 Chronic obstructive pulmonary disease, unspecified; F31.9 Bipolar disorder, unspecified; F42.9 Obsessive-compulsive disorder, unspecified; E06.3 Autoimmune thyroiditis; F17.210 Nicotine dependence, cigarettes, uncomplicated; Z90.710 Acquired absence of both cervix and uterus; Z79.899 Other long term (current) drug therapy
CPT/HCPCS: 36415; 74021; 74177; 80048; 80053; 81003; 83690; 85025; 94640; 96374; 96375; 96376; 99285; G0378; J1885; J2270; J2405; J7613; J7626; Q9967; 96372

== ENCOUNTER 2019-10-21 22:40 | Emergency (ER) | payer MEDICARE, MEDICAID ==
[~2019-10-21] VITALS: Ht 167.6 cm; Wt 73.0 kg
[~2019-10-21 22:40] MED LIST changes: +CLON1TAB23 PO; +DIVA500T2 PO; +HYOS0.1282 PO; +MULT-449 PO; -MULT1TAB60 PO; +TRAZ300T2 PO
--- NOTE | 2019-10-21 22:50 | NUR ---
Yue NAPIER at bedside
[2019-10-21] MEDS ORDERED: LORazepam 1MG TABLET PO ONE (23:00)
[2019-10-21] MEDS ORDERED: ONDANSETRON ODT 4 MG PO ONE (23:00)
[2019-10-21] MEDS ORDERED: SODIUM CHLORIDE FLUSH 10ML SYR IVF ONE (23:00)
[2019-10-21] MEDS ORDERED: ONDANSETRON ODT 4 MG ONE (23:06)
[2019-10-21] MEDS ORDERED: LORazepam 1MG TABLET ONE (23:07)
--- NOTE | 2019-10-21 23:14 | NUR ---
Seizure pads applied to stretcher. Pt no longer tremulous. Alert, answering questions approrpiately. O2 remains in high 90s RA
[2019-10-21 23:22] LABS: BASOPHILS # (AUTO) 0.09 x10^3/uL (0-0.1); BASOPHILS % (AUTO) 2 % (0-1); EOSINOPHILS # (AUTO) 0.23 x10^3/uL (0-0.4); EOSINOPHILS % (AUTO) 4 % (1-7); LYMPHOCYTES % (AUTO) 43 % (22-44); MD NO; MEAN CORPUSCULAR HEMOGLOBIN 33.1 pg (27.0-34.8); MEAN CORPUSCULAR HGB CONC 33.9 g/dL (32.4-35.8); MEAN CORPUSCULAR VOLUME 97.4 fL (80-100); MEAN PLATELET VOLUME 7.8 fL (7.4-10.4); MONOCYTES # (AUTO) 0.54 x10^3/uL (0.2-0.8); MONOCYTES % (AUTO) 9 % (2-9); NEUTROPHILS # (AUTO) 2.54 x10^3/uL (1.8-6.8); NEUTROPHILS % (AUTO) 42 % (42-75); PLATELET COUNT 223 x10^3/uL (130-400); RED BLOOD COUNT 3.66 x10^6/uL (3.82-5.3)
[2019-10-21 23:34] LABS: ALANINE AMINOTRANSFERASE 15 U/L (12-78); ALBUMIN 3.2 g/dL (3.4-5.0); ANION GAP 6 mmol/L (5-15); CALCIUM 8.7 mg/dL (8.5-10.1); CHLORIDE 110 mmol/L (98-107); CREATININE 0.83 mg/dL (0.55-1.02)
--- NOTE | 2019-10-21 23:35 | NUR ---
Arrives via [facility] s/p ? seizure. Per EMS, pt has seizure disorder. She was at home with , told [facility] pt was unresponsive x30 min prior to calling 911. Upon [facility] arrival, pt remained unresponsive and tremulous. O2 remained high 90s RA. Upon arrival to ED, pseudo seizures are noted. Tremulous, but still able to answer questions and move extremities, continues to state that she is having a seizure. No incontinence noted, mouth in tact, high 90s RA. Pt states seizure hx, unsure which medication she takes. PA to bedside upon arrival. C/o mild GO, denies all other sx. Neurologically in tact, see neuro assessment for additional details
[2019-10-21 23:38] LABS: ALKALINE PHOSPHATASE 39 U/L (45-117); BILIRUBIN,TOTAL 0.3 mg/dL (0.2-1.0); TOTAL PROTEIN 5.6 g/dL (6.4-8.2)
[2019-10-22 01:18] VITALS: BP 123/63
== END 2019-10-22 01:21 | disposition home or self-care (01) ==
LOC: ED 23:10
DX: G40.409 Other generalized epilepsy and epileptic syndromes, not intractable, without status epilepticus (principal); R55 Syncope and collapse; R51 Headache; M79.10 Myalgia, unspecified site; R94.31 Abnormal electrocardiogram [ECG] [EKG]; J44.9 Chronic obstructive pulmonary disease, unspecified; E78.5 Hyperlipidemia, unspecified; E03.9 Hypothyroidism, unspecified
CPT/HCPCS: 36415; 80053; 84703; 85025; 93005; 99284; Q0162

== ENCOUNTER 2020-02-23 10:41 | Emergency (ER) | payer MEDICARE, MEDICAID ==
[~2020-02-23] VITALS: Ht 170.2 cm; Wt 81.0 kg
[~2020-02-23 10:41] MED LIST changes: -PANT40TA5 PO; +PANT40TA6 PO; -RISP1TAB3 PO; +RISP1TAB90 PO; -RISP2TAB3 PO; +RISP2TAB80 PO; -RISP3TAB3 PO; +RISP3TAB58 PO; -RISP4TAB2 PO; +RISP4TAB66 PO
--- NOTE | 2020-02-23 10:48 | NUR ---
BIB EMS FOR RIGHT HAND PAIN. STATES SHE HAS A SWAN-LIKE DEFORMITY IN HER RIGHT HAND THAT SHE HAS HAD SX ON MULTIPLE TIME. STATES SHE CALLED EMS TODAY BECAUSE OF NEW REDNESS ON THE RIGHT HAND, RIGHT FORARM AND SHOULDER PAIN WHICH IS CAUSING HER TO HAVE A HEADACHE. STATES SHE WAS TOLD NOT TO LIFT ANY MORE THAN 5 LBS BUT HAS HAD TO HELP HER UP OFF OF THE FLOOR SEVERAL TIMES OVER THE PAST FEW DAYS. STATES PAIN 10/10. MONITORS CONNECTED. PAIN ASSESSED. WARM BLANKETS PROVIDED
[2020-02-23] MEDS ORDERED: ONDANSETRON ODT 4 MG PO ONE (11:30)
--- NOTE | 2020-02-23 11:33 | NUR ---
PT STATES SHE IS NOW "SWEATING AND CAN BARELY OPEN HER EYES". MD MADE AWARE. EKG COMPELTE. ECHOMETER ENGINEER PLACED. VSS.
[2020-02-23 11:40] LABS: BASOPHILS % (AUTO) 1 % (0-1); EOSINOPHILS % (AUTO) 2 % (1-7); LYMPHOCYTES % (AUTO) 31 % (22-44); MEAN CORPUSCULAR HEMOGLOBIN 33.5 pg (27.0-34.8); MEAN CORPUSCULAR HGB CONC 34.2 g/dL (32.4-35.8); MEAN PLATELET VOLUME 7.2 fL (7.4-10.4); MONOCYTES % (AUTO) 9 % (2-9); NEUTROPHILS % (AUTO) 56 % (42-75); PLATELET COUNT 245 x10^3/uL (130-400); RED BLOOD COUNT 3.67 x10^6/uL (3.82-5.3); RED CELL DISTRIBUTION WIDTH 14.7 % (9.6-15.2)
--- NOTE | 2020-02-23 11:40 | NUR ---
PT AMBULATED TO BATHROOM WITH STEADY GAIT
[2020-02-23 11:41] LABS: MD NO
[2020-02-23] MEDS ORDERED: ONDANSETRON ODT 4 MG ONE (12:31)
--- NOTE | 2020-02-23 12:36 | NUR ---
TECH AT BEDSIDE FOR SPLINT. PT. SITITNG UP ON VISHAL CONVERSING. VSS. NAD.
[2020-02-23 12:56] VITALS: BP 102/61
--- NOTE | 2020-02-23 13:09 | NUR ---
PT AMBULATED TO DISCHARGE WITH STEADY GAIT. PT ENCOURAGED TO FOLLOW-UP DISCUSSED. PT EDUCATED TO RETURN TO THE ED WITH WORSENING SYMPTOMS. PT CALLED [facility] FOR TRANSPORT HOME. RX GIVEN TO PT. VERBALIZES UNDERSTANDING OF DISCHARGE PAPERWORK
== END 2020-02-23 13:10 | disposition home or self-care (01) ==
LOC: ED 11:54
DX: G89.11 Acute pain due to trauma (principal); M79.641 Pain in right hand; I49.1 Atrial premature depolarization; F17.200 Nicotine dependence, unspecified, uncomplicated; E78.5 Hyperlipidemia, unspecified; K21.9 Gastro-esophageal reflux disease without esophagitis; J44.9 Chronic obstructive pulmonary disease, unspecified
CPT/HCPCS: 29125; 36415; 73130; 85025; 93005; 99285; Q0162

== ENCOUNTER 2020-08-14 18:12 | Emergency (ER) | payer MEDICARE, MEDICAID ==
[~2020-08-14] VITALS: Ht 167.6 cm; Wt 85.0 kg
[~2020-08-14 18:12] MED LIST changes: -FOLI-17 PO; +FOLI1TAB32 PO; -HYDR-3245 PO; +HYDR1TAB53 PO
--- NOTE | 2020-08-14 18:24 | NUR ---
SEE TRIAGE NOTE. PT BIBA FROM [facility] WHERE SHE RESIDES FOR HELP WITH MENTAL ILLNESS. BP CUFF, PULSE OX IN PLACE. CALL LIGHT WITHIN REACH, WARM BLANKET PROVIDED.
[2020-08-14 18:50] LABS: BASOPHILS % (AUTO) 1 % (0-1); EOSINOPHILS % (AUTO) 4 % (1-7); LYMPHOCYTES % (AUTO) 47 % (22-44); MEAN CORPUSCULAR HEMOGLOBIN 32.4 pg (27.0-34.8); MEAN CORPUSCULAR HGB CONC 34.1 g/dL (32.4-35.8); MEAN PLATELET VOLUME 7.5 fL (7.4-10.4); MONOCYTES % (AUTO) 7 % (2-9); NEUTROPHILS % (AUTO) 41 % (42-75); PLATELET COUNT 292 x10^3/uL (130-400); RED BLOOD COUNT 3.63 x10^6/uL (3.82-5.3); RED CELL DISTRIBUTION WIDTH 14.4 % (9.6-15.2)
--- NOTE | 2020-08-14 18:53 | NUR ---
Report from Cira STANLEY
[2020-08-14 18:59] LABS: ALANINE AMINOTRANSFERASE 18 U/L (12-78); ALBUMIN 3.1 g/dL (3.4-5.0); ANION GAP 4 mmol/L (5-15); CALCIUM 8.5 mg/dL (8.5-10.1); CHLORIDE 112 mmol/L (98-107); CREATININE 0.84 mg/dL (0.55-1.02)
[2020-08-14] MEDS ORDERED: PROMETHAZINE 25 MG/ML, 1ML IM ONE (19:00)
[2020-08-14 19:01] LABS: ALKALINE PHOSPHATASE 51 U/L (45-117); BILIRUBIN,TOTAL 0.3 mg/dL (0.2-1.0); TOTAL PROTEIN 6.1 g/dL (6.4-8.2)
--- NOTE | 2020-08-14 19:05 | NUR ---
Pt consistently pressing call light despite staff answering pt needs, pt proceeded to unhook self from all monitoring and walk into hallway. Pt stated "im going to pass out and no one will help me", this RN then asked "if you feel like you're going to pass out why did you walk into the hallway?" staff next to pt watched pt carfully assist herslf to the floor for what she called a brittney dooley. Pt had strong radial pulses bilaterally with noticable symmetrical chest rise. Pt "awoke" and walked herslef back to bed. Denies injury. Reconnected to all monitors, side rails up x2, educated on the saftey risk of disconnecting self from monitors to ambulate into hallway to pass out. ERP notified.
[2020-08-14] MEDS ORDERED: PROMETHAZINE 25 MG/ML, 1ML ONE (19:14)
--- NOTE | 2020-08-14 20:33 | NUR ---
pt hunched over in pain, crying, complaining of being too hot, her legs ar cramping up, she has diffuse back pain, that she can't move but is viably moving in bed, ERP notified
[2020-08-14] MEDS ORDERED: METHOCARBAMOL 750 MG TABLET ONE (21:09)
[2020-08-14] MEDS ORDERED: KETOROLAC 60 MG/2 ML ONE (21:09)
[2020-08-14 21:20] LABS: MICROSCOPIC INDICATED
[2020-08-14] MEDS ORDERED: KETOROLAC 30 MG/1 ML IM ONE (21:30)
[2020-08-14] MEDS ORDERED: METHOCARBAMOL 750 MG TABLET PO ONE (21:30)
[2020-08-14 22:18] VITALS: BP 107/72
== END 2020-08-14 22:21 | disposition home or self-care (01) ==
LOC: ED 21:50
DX: R10.84 Generalized abdominal pain (principal); K59.00 Constipation, unspecified; R11.10 Vomiting, unspecified; M79.89 Other specified soft tissue disorders; E78.5 Hyperlipidemia, unspecified; K21.9 Gastro-esophageal reflux disease without esophagitis; J44.9 Chronic obstructive pulmonary disease, unspecified; Z90.710 Acquired absence of both cervix and uterus; F17.200 Nicotine dependence, unspecified, uncomplicated
CPT/HCPCS: 36415; 74021; 80053; 81001; 83690; 85025; 87086; 96372; 99284; J1885; J2550

== ENCOUNTER 2020-08-15 10:49 | Emergency (ER) | payer MEDICARE, MEDICAID ==
[~2020-08-15] VITALS: Ht 167.6 cm; Wt 84.0 kg
--- NOTE | 2020-08-15 11:07 | NUR ---
pt was able to move from [facility] to [facility] unassisted. pt is in no resp. distress. pt is able to push on her belly without pain. pt has made multiple requests for warm blankets and slippers and food and drinks as well as new clothing and shoes pt reports that she fell when she was here yesterday, but denies head injury or LOC no family at bedside pt has been given wrm bankets and positioning for comfort
--- NOTE | 2020-08-15 11:09 | NUR ---
[facility] T[employer]ER 159 per report, pt had just eaten candy and chips
--- NOTE | 2020-08-15 11:09 | NUR ---
Dr Moran at bedside for eval
--- NOTE | 2020-08-15 11:20 | NUR ---
pt making statements to MD that she is unable to urinate. pt very histrionic that she has a hx of mulitple foleys and self-cathing as well as placement of suprapubic cath "because the navas's kept falling out bladder scan peformed at bedside. 20ml found to be present in bladder after multiple attempts pt denies feeling pressure in low abd. area pt requesting to have blisters on her feet popped MD notified of results
--- NOTE | 2020-08-15 11:48 | NUR ---
Grecia Moran has been to bedside for recheck
--- NOTE | 2020-08-15 12:17 | NUR ---
pt to be D/C. pt requesting cab voucher "because they gave me one last nocs" [place] in no apparent distress
--- NOTE | 2020-08-15 12:21 | NUR ---
report to Olman STANLEY for lunch
[2020-08-15 12:25] VITALS: BP 118/80
== END 2020-08-15 12:27 | disposition home or self-care (01) ==
LOC: ED 11:12
DX: R10.30 Lower abdominal pain, unspecified (principal); K21.9 Gastro-esophageal reflux disease without esophagitis; J44.9 Chronic obstructive pulmonary disease, unspecified; E78.5 Hyperlipidemia, unspecified; F17.200 Nicotine dependence, unspecified, uncomplicated
CPT/HCPCS: 99283

== ENCOUNTER 2020-08-31 03:53 | Emergency (ER) | payer MEDICARE, MEDICAID ==
[~2020-08-31] VITALS: Ht 167.6 cm; Wt 80.3 kg
--- NOTE | 2020-08-31 03:54 | NUR ---
PT SAW, PT STATES SHE NEEDS TO CHECK HER SELF INTO THE PSYCH TIWARI, PT STATES SHE OPENED UP LUCIFER IN HER HEART, PT STATES SHE HAS A SPLIT PERSONALITY NAMED ALEAH "WHO IS A BITCH", PT STATES SHE HAS BEEN DEPRESSED TODAY, PT STATES SHE IS HEARING VOICES, PT STATES SHE SHE HAS 6 LUCIFERS WITH HER AND HER GIANT MOHIT JONES NAMED MR VINCENT, PT A/OX4, ALL NEEDS IN REACH, CALL LIGHT IN REACH, NAD
--- NOTE | 2020-08-31 04:06 | NUR ---
PT ARRIVED WITH A SLING ON HER RIGHT ARM, PT STATED IT WAS DISLOCATED AND GOT PUT BACK IN AT [facility], PT ALSO HAS A URINARY CATHETER IN PLACE BECAUSE SHE STATES SHE CANNOT URINATE, EMS STATED THAT THIS IS THE 3RD TIME THEY ARE RESPONDING TO THIS PT TONIGHT
--- NOTE | 2020-08-31 04:44 | NUR ---
PT ASLEEP IN BED, ALL NEEDS IN REACH, CALL LIGHT IN REACH, NAD AT THIS TIME
--- NOTE | 2020-08-31 05:28 | NUR ---
WHEN MD WAS AT BEDSIDE PT TOLD MD SHE JUST WANTED TO MAKE SURE HER CATHETER WAS LEAKING, THIS RN CHECKE PTS CATHETER AND IT WAS FUNCTIONING IT SHOULD, CATHETER WAS PROPERLY DRAINING, NO DISHCARGE OR REDNES AROUND THE INSERTION SITE, URINE IN THE BAG HAD NO BLOOD IN IT, CATHETER TUBING HAD NO BLOOD IN IT EITHER, PT NAD
[2020-08-31 05:42] VITALS: BP 114/86
== END 2020-08-31 05:50 | disposition home or self-care (01) ==
LOC: ED 04:30
DX: R33.9 Retention of urine, unspecified (principal); F39 Unspecified mood [affective] disorder; J44.9 Chronic obstructive pulmonary disease, unspecified; K21.9 Gastro-esophageal reflux disease without esophagitis; E78.5 Hyperlipidemia, unspecified; F17.200 Nicotine dependence, unspecified, uncomplicated; Z86.711 Personal history of pulmonary embolism
CPT/HCPCS: 99283

== ENCOUNTER 2020-09-26 22:55 | Emergency (ER) | payer MEDICARE, MEDICAID ==
[~2020-09-26] VITALS: Ht 167.6 cm; Wt 72.7 kg
[2020-09-26 23:44] LABS: BASOPHILS % (AUTO) 1 % (0-1); EOSINOPHILS % (AUTO) 2 % (1-7); LYMPHOCYTES % (AUTO) 28 % (22-44); MEAN CORPUSCULAR HEMOGLOBIN 31.1 pg (27.0-34.8); MEAN CORPUSCULAR HGB CONC 34.4 g/dL (32.4-35.8); MEAN PLATELET VOLUME 7.9 fL (7.4-10.4); MONOCYTES % (AUTO) 6 % (2-9); NEUTROPHILS % (AUTO) 63 % (42-75); PLATELET COUNT 254 x10^3/uL (130-400); RED BLOOD COUNT 4.11 x10^6/uL (3.82-5.3); RED CELL DISTRIBUTION WIDTH 14.9 % (9.6-15.2)
[2020-09-26 23:53] LABS: ALANINE AMINOTRANSFERASE 17 U/L (12-78); ALBUMIN 3.7 g/dL (3.4-5.0); ANION GAP 9 mmol/L (5-15); CALCIUM 8.7 mg/dL (8.5-10.1); CHLORIDE 109 mmol/L (98-107); CREATININE 1.02 mg/dL (0.55-1.02)
[2020-09-26 23:57] LABS: ALKALINE PHOSPHATASE 57 U/L (45-117); BILIRUBIN,TOTAL 0.5 mg/dL (0.2-1.0)
--- NOTE | 2020-09-27 00:22 | NUR ---
PT BIBA FROM A PSYCH LONGTERM, PT BROUGTH IN FOR POSSIBLE SEIZURES, PT IS RAMBLING AND TALKING IN A WORD SALAD, PT KEEPS TALKING ABOUT RANDOM TOPICS, PT POOR HISTORIAN
[2020-09-27] MEDS ORDERED: POTASSIUM CHLORIDE 20 MEQ TAB.ER.PRT ONE (00:53)
[2020-09-27 00:56] VITALS: BP 110/72
[2020-09-27] MEDS ORDERED: POTASSIUM CHLORIDE 20 MEQ TAB.ER.PRT PO ONE (01:00)
== END 2020-09-27 01:51 | disposition home or self-care (01) ==
LOC: ED 23:30
DX: F41.1 Generalized anxiety disorder (principal); E87.6 Hypokalemia; R07.89 Other chest pain; R94.31 Abnormal electrocardiogram [ECG] [EKG]; J44.9 Chronic obstructive pulmonary disease, unspecified; K21.9 Gastro-esophageal reflux disease without esophagitis; Z86.711 Personal history of pulmonary embolism
CPT/HCPCS: 36415; 71045; 80053; 84703; 85025; 93005; 99285

== ENCOUNTER 2020-10-26 04:18 | Emergency (ER) | payer MEDICARE, MEDICAID ==
[~2020-10-26] VITALS: Ht 160 cm; Wt 69.5 kg
[2020-10-26] MEDS ORDERED: ASPIRIN 81 MG TABLET CHEW PO ONE (05:30)
[2020-10-26] MEDS ORDERED: ASPIRIN 81 MG TABLET CHEW ONE (05:34)
[2020-10-26 05:39] LABS: BASOPHILS % (AUTO) 1 % (0-1); EOSINOPHILS % (AUTO) 1 % (1-7); LYMPHOCYTES % (AUTO) 21 % (22-44); MEAN CORPUSCULAR HEMOGLOBIN 30.8 pg (27.0-34.8); MEAN CORPUSCULAR HGB CONC 33.9 g/dL (32.4-35.8); MONOCYTES % (AUTO) 12 % (2-9); NEUTROPHILS % (AUTO) 65 % (42-75); PLATELET COUNT 295 x10^3/uL (130-400); RED BLOOD COUNT 3.87 x10^6/uL (3.82-5.3); RED CELL DISTRIBUTION WIDTH 15.4 % (9.6-15.2)
--- NOTE | 2020-10-26 05:47 | NUR ---
Pt tolerated straight cath well, 600ml drained
[2020-10-26 05:50] LABS: ALANINE AMINOTRANSFERASE 16 U/L (12-78); ALBUMIN 2.8 g/dL (3.4-5.0); ANION GAP 6 mmol/L (5-15); CALCIUM 8.6 mg/dL (8.5-10.1); CHLORIDE 106 mmol/L (98-107); CREATININE 0.74 mg/dL (0.55-1.02)
[2020-10-26 05:54] LABS: ALKALINE PHOSPHATASE 58 U/L (45-117); BILIRUBIN,TOTAL 0.3 mg/dL (0.2-1.0); TOTAL PROTEIN 6.5 g/dL (6.4-8.2); TROPONIN I < 0.015 ng/mL (0.000-0.045)
[2020-10-26 06:03] LABS: MICROSCOPIC NOT IND
--- NOTE | 2020-10-26 06:55 | NUR ---
Report to Te STANLEY
--- NOTE | 2020-10-26 06:57 | NUR ---
PT RESTING CALMLY IN BED WITH EYES CLOSED. NO STATED NEEDS AT THIS TIME. PT UP FOR DC
[2020-10-26 07:12] VITALS: BP 102/67
== END 2020-10-26 07:17 | disposition home or self-care (01) ==
LOC: ED 04:30
DX: R07.89 Other chest pain (principal); F29 Unspecified psychosis not due to a substance or known physiological condition
CPT/HCPCS: 36415; 71045; 80053; 81003; 84484; 85025; 93005; 99285